=== PATIENT | female | born 1945 | race Caucasian/White ===

== ENCOUNTER 2020-04-08 10:21 | Inpatient (IN) | payer MEDICARE, MEDICAID, OTHER ==
[2020-04-08 11:05] LABS: #Lymphocytes 0.7 thou/uL (1.20-3.40); #Monocytes 1.1 thou/uL (0.11-0.59); #Neutrophils 17.2 thou/uL (1.40-6.50); %Lymphocytes 3.5 % (21.0-51.0); %Monocytes 5.7 % (0.0-10.0); %Neutrophils 90.8 % (42.0-75.0); Hemoglobin 14.4 g/dL (12.0-16.0); Mean Corpuscular HGB CONC 34.3 g/dL (32.0-36.0); Mean Corpuscular Hemoglobin 30.9 pg (27.0-31.0); Mean Corpuscular Volume 90.1 fL (78.0-98.0); Mean Platelet Volume 7.4 fL (7.4-10.4); Platelet Count 443 thou/uL (130-400); Red Blood Cell (RBC) Count 4.65 mill/uL (4.20-5.40)
[2020-04-08] MEDS ORDERED: Albuterol 200 PUFF (6.7GM INHALER) ONE (11:07)
[2020-04-08] MEDS ORDERED: Vancomycin 1 GM/200 ML BAG ONE (11:07)
[2020-04-08] MEDS ORDERED: methylPREDNISolone Sod Succ/PF 125 MG/2 ML VIAL ONE (11:07)
[2020-04-08] MEDS ORDERED: Acetaminophen 500 MG TAB ONE (11:07)
[2020-04-08] MEDS ORDERED: Piperacillin/Tazobactam 4.5 GM VIAL ONE (11:07)
--- NOTE | 2020-04-08 11:15 | RAD ---
XR Chest 1 View Portable HISTORY: Fever COMPARISON: 01/01/2020 FINDINGS: The heart size is normal. The lungs are well expanded with patchy airspace disease in the l ungs bilaterally, left greater than right. No, pneumothorax or pleural effusions are seen. IMPRESSION: Bilateral pneumonia.
[2020-04-08 11:24] LABS: ALT (SGPT) 15 U/L (8-55); AST (SGOT) 21 U/L (5-34); Albumin 3.6 g/dL (3.4-4.8); Alkaline Phosphatase 98 U/L (40-110); Anion Gap 17 mmol/L (10-20); BUN (Urea Nitrogen) 13 mg/dL (9.8-20.1); Bilirubin, Total 0.8 mg/dL (0.2-1.2); CK (CPK) 149 U/L (29-168); Calc. Creatinine Clearance 0 mL/min (70-130); Calcium 8.4 mg/dL (7.8-10.44); Carbon Dioxide 21 mmol/L (23-31); Chloride 94 mmol/L (98-107); Estimated GFR-MDRD 64; Globulin 2.8 g/dL (2.4-3.5); Glucose 308 mg/dL (83-110); Potassium 4.1 mmol/L (3.5-5.1); Protein, Total 6.4 g/dL (6.0-8.3); Sodium 128 mmol/L (136-145)
[2020-04-08 12:16] LABS: Actual Bicarbonate (HCO3v) 23 mEq/L (22-28); Analyzer IN Cardio ER; Base Excess -0.3 mEq/L (-2.0 to +3.0); Calcium, Ionized (venous) 1.07 mmol/L (1.16-1.32); Chloride (VBG) 92 mmol/L (98-106); Hemoglobin (Hb) 14.4 g/dL (11.7-16.1); pH (venous) 7.46 (7.32-7.43)
[2020-04-08 12:40] LABS: Lactic Acid 1.4 mmol/L (0.5-2.2)
--- NOTE | 2020-04-08 13:01 | PDOC.HHP ---
Hospitalist HPI - History of Present Illness Shortness of breath History of Present Illness: 74-year-old female patient with a history of diabetes mellitus, asthma hypertension who presents with shortness of breath for days duration. Patient notes that having shortness of breath a day ago which he thought asthma she did have breathing treatments however she had no significant resolution. She activated EMS today reported to the ED for further evaluation. At the time of my evaluation she was feeling much better. She was saturating 96% on room air. She admitted to cough however nonproductive. No fevers. She denied any headache abdominal pain chest pain dysuria. At initial evaluation ABG showed pH of 7.46, P CO2 32.6 and oxygen tension of 47.0. She had hyponatremia of 128, glucose 308 and a leukocytosis of 19.0. Chest x-ray showed bilateral pneumonia. COVID result is pending Vitals were 152/80 blood pressure, pulse 104, respiratory 22 and temperature 102.9. She was given vancomycin, Zosyn and 1 L of saline. She also received 125 mg Solu-Medrol. Hospitalist ROS - Review of Systems Constitutional: denies: fever, chills, sweats, weakness ENT: denies: ear pain, ear discharge, nose pain Respiratory: reports: cough, dry, shortness of breath, SOB with excertion. denies: hemoptysis Cardiovascular: denies: chest pain, palpitations, orthopnea, paroxysmal noc. dyspnea Genitourinary: denies: dysuria, frequency, incontinence Neurological: denies: weakness, numbness, incoordination - Medication Medications: As per admission records. Hospitalist History - Past Medical History Cardiac: reports: HTN Pulmonary: reports: asthma - Past Surgical History Other Surgical History: Appendectomy, tubal ligation, hernia removal Hospitalist Results - Labs Result Diagrams: 04/08/20 10:45 04/08/20 10:45 Lab results: WBC 19.0 thou/uL (4.8-10.8) H 04/08/20 10:45 Hgb 14.4 g/dL (12.0-16.0) 04/08/20 10:45 Hct 41.9 % (36.0-47.0) 04/08/20 10:45 MCV 90.1 fL (78.0-98.0) 04/08/20 10:45 Plt Count 443 thou/uL (130-400) H 04/08/20 10:45 Neutrophils % 90.8 % (42.0-75.0) H 04/08/20 10:45 VBG pH 7.46 (7.32-7.43) H 04/08/20 12:10 VBG pCO2 32.6 mmHg (42.0-51.0) L 04/08/20 12:10 VBG pO2 47.0 mmHg (35.0-45.0) H 04/08/20 12:10 Sodium 128 mmol/L (136-145) L 04/08/20 10:45 Potassium 4.1 mmol/L (3.5-5.1) 04/08/20 10:45 Chloride 94 mmol/L (98-107) L 04/08/20 10:45 Carbon Dioxide 21 mmol/L (23-31) L 04/08/20 10:45 BUN 13 mg/dL (9.8-20.1) 04/08/20 10:45 Creatinine 0.86 mg/dL (0.6-1.1) 04/08/20 10:45 Glucose 308 mg/dL (83-110) H 04/08/20 10:45 Lactic Acid 1.4 mmol/L (0.5-2.2) 04/08/20 12:15 Calcium 8.4 mg/dL (7.8-10.44) 04/08/20 10:45 Total Bilirubin 0.8 mg/dL (0.2-1.2) 04/08/20 10:45 AST 21 U/L (5-34) 04/08/20 10:45 ALT 15 U/L (8-55) 04/08/20 10:45 Alkaline Phosphatase 98 U/L (40-110) 04/08/20 10:45 Creatine Kinase 149 U/L (29-168) 04/08/20 10:45 Troponin I 0.023 ng/mL (< 0.028) 04/08/20 10:45 Serum Total Protein 6.4 g/dL (6.0-8.3) 04/08/20 10:45 Albumin 3.6 g/dL (3.4-4.8) 04/08/20 10:45 Hospitalist H&P A/P - Plan Plan: This is a 74-year-old female patient with a history of hypertension, asthma presented to ED on account of shortness of breath. Initial evaluation concerning for bilateral pneumonia which is concerning for COVID. Bilateral pneumonia Likely COVIDtest pending. Received steroids Also received vancomycin and Zosyn We will add azithromycin to cover for atypicals To start COVID therapy once confirmed. Sepsis Likely secondary to pneumonialikely COVID Received IV fluids and antibiotics Pending call with testing. Follow-up on cultures Close monitoring. Hypertension Blood pressure fair We will monitorstart home medications if verified. History of asthma Duo nebs Steroids Treat COVID if positive. Hyponatremia WBC 128 We will monitor DVT prophylaxisLovenox
[2020-04-08 13:29] LABS: Bacteria/HPF None Seen HPF (None Seen); Bilirubin Negative (Negative); Blood, Urine Negative (Negative); Clarity Turbid (Clear); Glucose, Urine (Dipstick) Greater than 1000 mg/dL (Negative); Ketone, Urine 20 mg/dL (Negative); Leukocyte Negative Leu/uL (Negative); Nitrite Negative (Negative); Protein, Urine (Dipstick) 50 mg/dL (Neg-Trace); RBC/HPF None Seen HPF (0-3); Specific Gravity, Urine 1.022 (1.002-1.036); Squamous Epithelial None Seen HPF (0-3); WBC/HPF 0-3 HPF (0-3)
[2020-04-08 13:46] LABS: SARS-CoV-2 NAA Rapid Test DETECTED (NotDetected)
[2020-04-08] MEDS ORDERED: cefTRIAXone\\ROCEPHIN 1 GM in Sodium Chloride 0.9% 100 ML IVPB SCH ×2 (14:00→17:00)
[2020-04-08 14:45] LABS: Troponin I 0.023 ng/mL (< 0.028)
[2020-04-08] MEDS ORDERED: Azithromycin 500 MG in Sodium Chloride 0.9% 250 ML 250 ML IVPB SCH ×2 (15:00→18:00)
[2020-04-08] MEDS ORDERED: Albuterol 200 PUFF (6.7GM INHALER) INH PRN (15:54)
[2020-04-08] MEDS: Albuterol 200 PUFF (6.7GM INHALER) INH SCH ×2 (18:05→21:30)
[2020-04-08] MEDS ORDERED: Dextrose 5% in Water 1,000 ML IV PRN (18:41)
[2020-04-08] MEDS ORDERED: Dextrose 50% Abboject 50 ML SYRINGE SLOW IVP PRN (18:41)
[2020-04-08] MEDS ORDERED: HumaLOG 300 UNITS/3 ML VIAL SC PRN (21:04)
[2020-04-08] MEDS ORDERED: Dexamethasone 6 MG in Sodium Chloride 0.9% 50 ML IVPB SCH (21:30)
[2020-04-09] MEDS: Albuterol 200 PUFF (6.7GM INHALER) INH SCH ×6 (02:41→22:16)
[2020-04-09 05:40] LABS: Hemoglobin 13.2 g/dL (12.0-16.0); Mean Corpuscular HGB CONC 33.4 g/dL (32.0-36.0); Mean Corpuscular Hemoglobin 30.9 pg (27.0-31.0); Mean Corpuscular Volume 92.6 fL (78.0-98.0); Mean Platelet Volume 7.4 fL (7.4-10.4); Platelet Count 472 thou/uL (130-400); RBC Distribution Width 11.2 % (11.5-14.5); Red Blood Cell (RBC) Count 4.25 mill/uL (4.20-5.40); White Blood Cell (WBC) Count 22.7 thou/uL (4.8-10.8)
[2020-04-09 05:49] LABS: Anion Gap 17 mmol/L (10-20); BUN (Urea Nitrogen) 15 mg/dL (9.8-20.1); Calc. Creatinine Clearance 69 mL/min (70-130); Calcium 8.9 mg/dL (7.8-10.44); Carbon Dioxide 23 mmol/L (23-31); Chloride 97 mmol/L (98-107); Estimated GFR-MDRD 74; Glucose 272 mg/dL (83-110); Potassium 3.6 mmol/L (3.5-5.1); Sodium 133 mmol/L (136-145)
[2020-04-09 05:58] LABS: Band 14 % (5-11); Lymphocytes 7 % (21-51); MDiff Complete? YES; Monocytes 5 % (0-10); Neutrophil 74 % (42-75); Platelet Morphology Comment Appears Increased
[2020-04-09] MEDS: HumaLOG 300 UNITS/3 ML VIAL SC PRN ×3 (06:04→18:13)
[2020-04-09] MEDS ORDERED: Enoxaparin Sodium 40 MG/0.4 ML SYRINGE SC SCH (09:00)
[2020-04-09] MEDS: Dexamethasone 6 MG in Sodium Chloride 0.9% 50 ML IVPB SCH (09:29)
--- NOTE | 2020-04-09 10:38 | PDOC.HOSPP ---
- Subjective Encounter Date: 04/09/20 Encounter Time: 10:37 Subjective: Ms. Holt was seen today in follow-up of respiratory failure due to COVID infection. She says she does not feel much better. She does not have any new complaints. She continues to have cough and some shortness of breath. - Objective Vital Signs & Weight: Vital Signs (12 hours) Temp Pulse Resp BP Pulse Ox 04/09/20 08:00 99.3 F 103 H 20 129/60 98 04/09/20 03:30 99.0 F 102 H 22 H 140/63 94 L 04/09/20 00:20 97.8 F 90 22 H 125/59 L 96 Weight Weight 150 lb I&O: 04/08/20 04/09/20 04/10/20 06:59 06:59 06:59 Intake Total 640 Output Total 350 Balance 290 Result Diagrams: 04/09/20 04:47 04/09/20 04:47 Additional Labs: Accuchecks 04/08/20 04/08/20 19:56 17:29 POC Glucose 442 H 285 H Hospitalist ROS - Medication Medications: Active Medications Generic Name Dose Route Start Last Admin Trade Name Freq PRN Reason Stop Dose Admin Albuterol Sulfate 2 puff 04/08/20 18:30 04/09/20 06:04 Albuterol 200 Puff (6.7gm Inhaler) INH 2 puff [id number] FRANCIS Administration Enoxaparin Sodium 40 mg 04/09/20 09:00 04/09/20 08:27 Enoxaparin Sodium 40 Mg/0.4 Ml Syringe SC 40 mg 0900 FRANCIS Administration Ceftriaxone Sodium 1 gm/ 100 mls @ 200 mls/hr 04/08/20 17:00 04/08/20 18:05 Sodium Chloride IVPB 100 mls Q24HR FRANCIS Administration Azithromycin 500 mg/ Sodium 250 mls @ 250 mls/hr 04/08/20 18:00 04/08/20 18:04 Chloride IVPB 250 mls Q24HR FRANCIS Administration Dexamethasone 6 mg/ Sodium 50.6 mls @ 101.2 mls/hr 04/09/20 09:00 04/09/20 09:29 Chloride IVPB 50.6 mls DAILY FRANCIS Administration Insulin Human Lispro 0 units 04/08/20 18:41 04/09/20 06:04 Humalog 300 Units/3 Ml Vial SC 4 unit .MILD SLIDING SCALE PRN Administration Mild Correctional Scale Insulin Human Lispro 0 units 04/08/20 21:04 04/08/20 21:29 Humalog 300 Units/3 Ml Vial SC 5 unit .BEDTIME SLIDING SC PRN Administration Bedtime Correctional Scale - Exam Eye: PERRL, anicteric sclera Heart: RRR, no murmur, no gallops, no rubs, normal peripheral pulses Respiratory: no ronchi, rales (+ rales at both bases) Gastrointestinal: soft, non-tender, non-distended, normal bowel sounds, no palpable masses, no hepatomegaly Extremities: no cyanosis, no edema Hosp A/P (1) Acute respiratory failure with hypoxemia Code(s): J96.01 - ACUTE RESPIRATORY FAILURE WITH HYPOXIA Status: Acute (2) Diabetes mellitus type 2 in nonobese Code(s): E11.9 - TYPE 2 DIABETES MELLITUS WITHOUT COMPLICATIONS Status: Chronic (3) Hypertension Code(s): I10 - ESSENTIAL (PRIMARY) HYPERTENSION Status: Chronic (4) Asthma Code(s): J45.909 - UNSPECIFIED ASTHMA, UNCOMPLICATED Status: Chronic - Plan * Acute respiratory failure due to COVID pneumonia- continue supportive care * Will continue IV Decadron, and empiric antibiotics * Will continue to monitor inflammatory markers * ID has been consulted * HTN- blood pressure is stable- will re-start her home medications * DM- blood glucose is stable- and will re-start her home medications
[2020-04-09] MEDS ORDERED: Docusate 100 MG CAP PO PRN (10:41)
[2020-04-09] MEDS ORDERED: Naproxen 500 MG TAB PO PRN (12:18)
[2020-04-09] MEDS ORDERED: Zolpidem Tartrate 5 MG TAB PO PRN (16:39)
[2020-04-09] MEDS: metFORMIN 500 MG TAB PO SCH (18:13)
[2020-04-09] MEDS: Enoxaparin Sodium 40 MG/0.4 ML SYRINGE SC SCH (19:52)
[2020-04-09] MEDS: Metoprolol Tartrate 50 MG TAB PO SCH (19:53)
[2020-04-09] MEDS: Insulin Glargine 35 UNITS in Pre-Filled Syringe 1 EACH SC SCH (19:53)
[2020-04-09] MEDS ORDERED: REMDESIVIR (EUA) 200 MG in Sodium Chloride 0.9% 250 ML 210 ML IV SCH (21:00)
[2020-04-09] MEDS ORDERED: Non-Formulary Item 1 EACH (Insulin Detemir [Levemir] 100 UNIT/ML Vial) SQ SCH (21:00)
--- NOTE | 2020-04-09 22:00 | CON ---
DATE OF CONSULTATION: 04/09/2020 REASON FOR CONSULTATION: COVID infection. HISTORY OF PRESENT ILLNESS: A 74-year-old with history of type 2 diabetes, hypertension, and two days duration of shortness of breath and cough and fever. She was saturating 96% on room air. Had some cough and had a blood gas with a pH of 7.46, pCO2 of 32, and pO2 of 47. Sodium 128 and leukocytosis of 19. Chest x-ray with quite pronounced bilateral diffuse areas of pneumonic infiltrate. The COVID was positive. Currently, she is in bed. She is having issues sleeping at night and feels tired, coughing also constantly, which is bothering her. No headaches. No sputum production. No back pain. No abdominal pain. No diarrhea. No genitourinary symptoms. No joint symptoms. PAST MEDICAL HISTORY: Hypertension, type 2 diabetes, and asthma. PAST SURGICAL HISTORY: Appendectomy, tubal ligation, and hernia removal. CURRENT MEDICATIONS: 1. Inhalers. 2. Azithromycin. 3. Ceftriaxone. 4. Decadron. 5. Enoxaparin. FAMILY HISTORY: Noncontributory. PHYSICAL EXAMINATION: VITAL SIGNS: T-max 98.3, blood pressure 130/60, heart rate 120, and O2 saturation 95 with nasal cannula O2 at 2 L. she is breathing 22 times a minute. SKIN: Peripheral IV access. She is voiding in the diaper. No lymphadenopathy. HEENT: Ocular movements conjugate. Oral cavity normal. NECK: Supple. LUNGS: Symmetric air entry. Inspiratory crackles at the bases. HEART: S1 and S2. Regular rate. No S3 or S4. ABDOMEN: Soft, not distended or tender. No ascites. No bladder distention. EXTREMITIES: No joint inflammatory activity. Moves all extremities equally. NEUROLOGIC: Cognitive functions seems to be preserved. DIAGNOSTIC DATA: Chest x-ray, diffuse pulmonary infiltrates. ASSESSMENT AND PLAN: Type 2 diabetes, hypertension, and diffuse COVID pneumonia, moderate to severe. We will add remdesivir. Continue Decadron. Discontinue azithromycin and Rocephin. Continue enoxaparin, upgrade to b.i.d. dosing. Monitor daily inflammatory markers, liver panel, and basic metabolic panel. Job ID: [id number]
[2020-04-10] MEDS: Albuterol 200 PUFF (6.7GM INHALER) INH SCH ×6 (02:39→21:06)
[2020-04-10 06:36] LABS: Anion Gap 12 mmol/L (10-20); BUN (Urea Nitrogen) 16 mg/dL (9.8-20.1); CRP (Inflammatory) 15.41 mg/dL (= or < 0.5); Calc. Creatinine Clearance 76 mL/min (70-130); Calcium 8.7 mg/dL (7.8-10.44); Carbon Dioxide 28 mmol/L (23-31); Chloride 98 mmol/L (98-107); Estimated GFR-MDRD 82; Glucose 125 mg/dL (83-110); Potassium 3.6 mmol/L (3.5-5.1); Sodium 134 mmol/L (136-145)
[2020-04-10 06:40] LABS: ALT (SGPT) 17 U/L (8-55); AST (SGOT) 23 U/L (5-34); Albumin 3.1 g/dL (3.4-4.8); Alkaline Phosphatase 79 U/L (40-110); Bilirubin, Direct 0.3 mg/dL (0.1-0.3); Bilirubin, Total 0.4 mg/dL (0.2-1.2); Protein, Total 6.2 g/dL (6.0-8.3)
[2020-04-10] MEDS: metFORMIN 500 MG TAB PO SCH ×2 (09:13→16:53)
[2020-04-10] MEDS: Aspirin 325 mg Enteric Coated Tablet PO SCH (09:13)
[2020-04-10] MEDS: Folic Acid/Vit B Comp W-C PO SCH (09:13)
[2020-04-10] MEDS: Atorvastatin Calcium 10 MG TAB PO SCH (09:14)
[2020-04-10] MEDS: Amlodipine 5 MG TAB PO SCH (09:14)
[2020-04-10] MEDS: Ascorbic Acid 500 mg Chewable Tablet PO SCH (09:14)
[2020-04-10] MEDS: Metoprolol Tartrate 50 MG TAB PO SCH ×2 (09:14→21:05)
[2020-04-10] MEDS: Enoxaparin Sodium 40 MG/0.4 ML SYRINGE SC SCH ×2 (09:14→21:06)
[2020-04-10] MEDS: Dexamethasone 6 MG in Sodium Chloride 0.9% 50 ML IVPB SCH (09:16)
--- NOTE | 2020-04-10 10:17 | PDOC.HOSPP ---
- Subjective Encounter Date: 04/10/20 Encounter Time: 10:16 Subjective: Ms. Holt was seen today in follow-up of COVID infection with pneumonia. She syas she is fine until she has coughing spells. She says this usually happens at night, - Objective Vital Signs & Weight: Vital Signs (12 hours) Temp Pulse Resp BP Pulse Ox 04/10/20 09:25 97.4 F L 90 32 H 139/67 96 04/10/20 04:00 98.9 F 78 28 H 132/101 H 92 L 04/09/20 23:35 98.1 F 75 28 H 133/65 95 Weight Admit Weight 150 lb Weight 153 lb 12.8 oz I&O: 04/09/20 04/10/20 04/11/20 06:59 06:59 06:59 Intake Total 640 555 Output Total 350 1150 Balance 290 -595 Result Diagrams: 04/09/20 04:47 04/10/20 05:04 Additional Labs: Accuchecks 04/10/20 04/09/20 04/09/20 06:15 20:24 15:56 POC Glucose 112 H 315 H 374 H 04/09/20 10:38 POC Glucose 284 H Hospitalist ROS - Medication Medications: Active Medications Generic Name Dose Route Start Last Admin Trade Name Freq PRN Reason Stop Dose Admin Albuterol Sulfate 2 puff 04/08/20 18:30 04/10/20 06:16 Albuterol 200 Puff (6.7gm Inhaler) INH 2 puff [id number] FRANCIS Administration Amlodipine Besylate 5 mg 04/10/20 09:00 04/10/20 09:14 Amlodipine 5 Mg Tab PO 5 mg DAILY FRANCIS Administration Ascorbic Acid 1,000 mg 04/10/20 09:00 04/10/20 09:14 Ascorbic Acid 500 Mg Chewable Tablet PO 1,000 mg DAILY FRANCIS Administration Aspirin 325 mg 04/10/20 09:00 04/10/20 09:13 Aspirin 325 Mg Enteric Coated Tablet PO 325 mg DAILY FRANCIS Administration Atorvastatin Calcium 10 mg 04/10/20 09:00 04/10/20 09:14 Atorvastatin Calcium 10 Mg Tab PO 10 mg DAILY FRANCIS Administration Enoxaparin Sodium 40 mg 04/09/20 21:00 04/10/20 09:14 Enoxaparin Sodium 40 Mg/0.4 Ml Syringe SC 40 mg BID FRANCIS Administration Dexamethasone 6 mg/ Sodium 50.6 mls @ 101.2 mls/hr 04/09/20 09:00 04/10/20 09:16 Chloride IVPB 50.6 mls DAILY FRANCIS Administration Insulin Glargine 35 units/ 0.35 mls @ 0 mls/hr 04/09/20 21:00 04/09/20 19:53 Miscellaneous Medication SC 0.35 mls HS FRANCIS Administration Insulin Human Lispro 0 units 04/08/20 18:41 04/09/20 18:13 Humalog 300 Units/3 Ml Vial SC 6 unit .MILD SLIDING SCALE PRN Administration Mild Correctional Scale Insulin Human Lispro 0 units 04/08/20 21:04 04/08/20 21:29 Humalog 300 Units/3 Ml Vial SC 5 unit .BEDTIME SLIDING SC PRN Administration Bedtime Correctional Scale Metformin HCl 1,000 mg 04/09/20 17:00 04/10/20 09:13 Metformin 500 Mg Tab PO 1,000 mg BID-WM FRANCIS Administration Metoprolol Tartrate 50 mg 04/09/20 21:00 04/10/20 09:14 Metoprolol Tartrate 50 Mg Tab PO 50 mg BID FRANCIS Administration Vitamin B Complex/Vit C/Folic Acid 1 tab 04/10/20 09:00 04/10/20 09:13 Folic Acid/Vit B Comp W-C PO 1 tab DAILY FRANCIS Administration - Exam Eye: PERRL, anicteric sclera Heart: RRR, no murmur, no gallops, no rubs, normal peripheral pulses Respiratory: no ronchi, rales (+ bibasilar rales) Gastrointestinal: soft, non-tender, non-distended, normal bowel sounds, no palpable masses, no hepatomegaly Extremities: no cyanosis, no edema Hosp A/P (1) Acute respiratory failure with hypoxemia Code(s): J96.01 - ACUTE RESPIRATORY FAILURE WITH HYPOXIA Status: Acute (2) Diabetes mellitus type 2 in nonobese Code(s): E11.9 - TYPE 2 DIABETES MELLITUS WITHOUT COMPLICATIONS Status: Chronic (3) Hypertension Code(s): I10 - ESSENTIAL (PRIMARY) HYPERTENSION Status: Chronic (4) Asthma Code(s): J45.909 - UNSPECIFIED ASTHMA, UNCOMPLICATED Status: Chronic - Plan * Acute respiratory failure due to COVID pneumonia- continue supportive care * Will continue IV Decadron, and she has been started on Remdisivir * Will continue to monitor inflammatory markers * HTN- blood pressure is a bit labile- continue Amlodipine and prn medications * DM- blood glucose is stable * Asthma- stable
[2020-04-10] MEDS: HumaLOG 300 UNITS/3 ML VIAL SC PRN (17:04)
[2020-04-10] MEDS: REMDESIVIR (EUA) 100 MG in Sodium Chloride 0.9% 250 ML 230 ML IV SCH (21:04)
[2020-04-10] MEDS: Insulin Glargine 35 UNITS in Pre-Filled Syringe 1 EACH SC SCH (21:04)
[2020-04-11] MEDS: Albuterol 200 PUFF (6.7GM INHALER) INH SCH ×5 (03:00→22:03)
[2020-04-11 05:18] LABS: #Basophils 0.1 thou/uL (0.0-0.2); #Eosinphils 0.1 thou/uL (0.0-0.7); #Lymphocytes 3.5 thou/uL (1.20-3.40); #Monocytes 1.7 thou/uL (0.11-0.59); #Neutrophils 9.4 thou/uL (1.40-6.50); %Basophils 0.4 % (0.0-1.0); %Eosinophils 0.7 % (0.0-10.0); %Lymphocytes 23.6 % (21.0-51.0); %Monocytes 11.7 % (0.0-10.0); %Neutrophils 63.5 % (42.0-75.0); Hemoglobin 13.4 g/dL (12.0-16.0); Mean Corpuscular HGB CONC 34.7 g/dL (32.0-36.0); Mean Corpuscular Hemoglobin 31.2 pg (27.0-31.0); Mean Platelet Volume 7.2 fL (7.4-10.4); Platelet Count 590 thou/uL (130-400); RBC Distribution Width 11.3 % (11.5-14.5); Red Blood Cell (RBC) Count 4.28 mill/uL (4.20-5.40); White Blood Cell (WBC) Count 14.8 thou/uL (4.8-10.8)
[2020-04-11 05:42] LABS: ALT (SGPT) 21 U/L (8-55); AST (SGOT) 24 U/L (5-34); Albumin 2.9 g/dL (3.4-4.8); Alkaline Phosphatase 72 U/L (40-110); Bilirubin, Direct 0.3 mg/dL (0.1-0.3); Bilirubin, Total 0.4 mg/dL (0.2-1.2)
[2020-04-11 05:54] LABS: Anion Gap 13 mmol/L (10-20); BUN (Urea Nitrogen) 17 mg/dL (9.8-20.1); CRP (Inflammatory) 11.38 mg/dL (= or < 0.5); Calc. Creatinine Clearance 81 mL/min (70-130); Calcium 8.2 mg/dL (7.8-10.44); Carbon Dioxide 27 mmol/L (23-31); Chloride 99 mmol/L (98-107); Estimated GFR-MDRD 87; Potassium 3.5 mmol/L (3.5-5.1); Sodium 135 mmol/L (136-145)
[2020-04-11 06:02] LABS: Glucose 55 mg/dL (83-110)
[2020-04-11] MEDS: Dexamethasone 6 MG in Sodium Chloride 0.9% 50 ML IVPB SCH (08:25)
[2020-04-11] MEDS: Enoxaparin Sodium 40 MG/0.4 ML SYRINGE SC SCH ×2 (08:26→21:11)
[2020-04-11] MEDS: metFORMIN 500 MG TAB PO SCH ×2 (08:26→17:54)
[2020-04-11] MEDS: Ascorbic Acid 500 mg Chewable Tablet PO SCH (08:27)
[2020-04-11] MEDS: Folic Acid/Vit B Comp W-C PO SCH (08:27)
[2020-04-11] MEDS: Amlodipine 5 MG TAB PO SCH (08:27)
[2020-04-11] MEDS: Metoprolol Tartrate 50 MG TAB PO SCH ×2 (08:27→21:12)
[2020-04-11] MEDS: Aspirin 325 mg Enteric Coated Tablet PO SCH (08:27)
[2020-04-11] MEDS: Atorvastatin Calcium 10 MG TAB PO SCH (08:27)
--- NOTE | 2020-04-11 10:54 | PDOC.HOSPP ---
- Subjective Encounter Date: 04/11/20 Encounter Time: 10:53 Subjective: Ms. Holt was seen today in follow-up of COVID pneumonia. She notes continued cough and dyspnea, but says she is a little better. At times she appears a little confused, but she is able to answer the orientation questions correctly. - Objective Vital Signs & Weight: Vital Signs (12 hours) Temp Pulse Resp BP Pulse Ox 04/11/20 08:00 97.5 F L 75 20 120/53 L 98 04/11/20 03:00 98.5 F 70 28 H 151/67 H 96 04/10/20 23:57 22 H 96 Weight Admit Weight 150 lb Weight 153 lb 12.8 oz I&O: 04/10/20 04/11/20 04/12/20 06:59 06:59 06:59 Intake Total 555 1460 Output Total 1150 1350 Balance -595 1460 -1350 Result Diagrams: 04/11/20 04:53 04/11/20 04:53 Additional Labs: Accuchecks 04/11/20 04/10/20 04/10/20 06:24 16:59 11:04 POC Glucose 84 314 H 115 H Hospitalist ROS - Medication Medications: Active Medications Generic Name Dose Route Start Last Admin Trade Name Freq PRN Reason Stop Dose Admin Albuterol Sulfate 2 puff 04/08/20 18:30 04/11/20 06:30 Albuterol 200 Puff (6.7gm Inhaler) INH 2 puff [id number] FRANCIS Administration Amlodipine Besylate 5 mg 04/10/20 09:00 04/11/20 08:27 Amlodipine 5 Mg Tab PO 5 mg DAILY FRANCIS Administration Ascorbic Acid 1,000 mg 04/10/20 09:00 04/11/20 08:27 Ascorbic Acid 500 Mg Chewable Tablet PO 1,000 mg DAILY FRANCIS Administration Aspirin 325 mg 04/10/20 09:00 04/11/20 08:27 Aspirin 325 Mg Enteric Coated Tablet PO 325 mg DAILY FRANCIS Administration Atorvastatin Calcium 10 mg 04/10/20 09:00 04/11/20 08:27 Atorvastatin Calcium 10 Mg Tab PO 10 mg DAILY FRANCIS Administration Enoxaparin Sodium 40 mg 04/09/20 21:00 04/11/20 08:26 Enoxaparin Sodium 40 Mg/0.4 Ml Syringe SC 40 mg BID FRANCIS Administration Dexamethasone 6 mg/ Sodium 50.6 mls @ 101.2 mls/hr 04/09/20 09:00 04/11/20 08:25 Chloride IVPB 50.6 mls DAILY FRANCIS Administration Insulin Glargine 35 units/ 0.35 mls @ 0 mls/hr 04/09/20 21:00 04/10/20 21:04 Miscellaneous Medication SC 0.35 mls HS FRANCIS Administration Remdesivir 100 mg/ Sodium 250 mls @ 250 mls/hr 04/10/20 20:00 04/10/20 21:04 Chloride IV 04/13/20 20:59 250 mls 2000 FRANCIS Administration Insulin Human Lispro 0 units 04/08/20 18:41 04/10/20 17:04 Humalog 300 Units/3 Ml Vial SC 5 unit .MILD SLIDING SCALE PRN Administration Mild Correctional Scale Insulin Human Lispro 0 units 04/08/20 21:04 04/08/20 21:29 Humalog 300 Units/3 Ml Vial SC 5 unit .BEDTIME SLIDING SC PRN Administration Bedtime Correctional Scale Metformin HCl 1,000 mg 04/09/20 17:00 04/11/20 08:26 Metformin 500 Mg Tab PO 1,000 mg BID-WM FRANCIS Administration Metoprolol Tartrate 50 mg 04/09/20 21:00 04/11/20 08:27 Metoprolol Tartrate 50 Mg Tab PO 50 mg BID FRANCIS Administration Vitamin B Complex/Vit C/Folic Acid 1 tab 04/10/20 09:00 04/11/20 08:27 Folic Acid/Vit B Comp W-C PO 1 tab DAILY FRANCIS Administration - Exam Eye: PERRL, anicteric sclera Heart: RRR, no murmur, no gallops, no rubs, normal peripheral pulses Respiratory: rales (at the bases, faint, and occasional wheeze) Gastrointestinal: soft, non-tender, non-distended, normal bowel sounds, no palpable masses, no hepatomegaly Extremities: no cyanosis, no edema Hosp A/P (1) Acute respiratory failure with hypoxemia Code(s): J96.01 - ACUTE RESPIRATORY FAILURE WITH HYPOXIA Status: Acute (2) Diabetes mellitus type 2 in nonobese Code(s): E11.9 - TYPE 2 DIABETES MELLITUS WITHOUT COMPLICATIONS Status: Chronic (3) Hypertension Code(s): I10 - ESSENTIAL (PRIMARY) HYPERTENSION Status: Chronic (4) Asthma Code(s): J45.909 - UNSPECIFIED ASTHMA, UNCOMPLICATED Status: Chronic - Plan * Acute respiratory failure due to COVID pneumonia- continue supportive care * Will continue IV Decadron, and Remdisivir * Will continue to monitor inflammatory markers * HTN- blood pressure is a bit labile- continue Amlodipine and prn medications * DM- blood glucose is a bit labile- will monitor * Asthma- stable
[2020-04-11] MEDS: Insulin Glargine 35 UNITS in Pre-Filled Syringe 1 EACH SC SCH (21:11)
[2020-04-11] MEDS: REMDESIVIR (EUA) 100 MG in Sodium Chloride 0.9% 250 ML 230 ML IV SCH (21:11)
[2020-04-12] MEDS: Albuterol 200 PUFF (6.7GM INHALER) INH SCH ×6 (01:30→22:30)
[2020-04-12 04:46] LABS: #Basophils 0.1 thou/uL (0.0-0.2); #Eosinphils 0.1 thou/uL (0.0-0.7); #Lymphocytes 3.1 thou/uL (1.20-3.40); #Monocytes 1.5 thou/uL (0.11-0.59); #Neutrophils 9.4 thou/uL (1.40-6.50); %Basophils 0.6 % (0.0-1.0); %Eosinophils 0.7 % (0.0-10.0); %Lymphocytes 21.9 % (21.0-51.0); %Monocytes 10.7 % (0.0-10.0); %Neutrophils 66.2 % (42.0-75.0); Hemoglobin 12.7 g/dL (12.0-16.0); Mean Corpuscular HGB CONC 33.8 g/dL (32.0-36.0); Mean Corpuscular Hemoglobin 30.8 pg (27.0-31.0); Mean Corpuscular Volume 91.1 fL (78.0-98.0); Mean Platelet Volume 7.2 fL (7.4-10.4); Platelet Count 570 thou/uL (130-400); RBC Distribution Width 11.3 % (11.5-14.5); Red Blood Cell (RBC) Count 4.13 mill/uL (4.20-5.40); White Blood Cell (WBC) Count 14.3 thou/uL (4.8-10.8)
[2020-04-12 05:17] LABS: Anion Gap 12 mmol/L (10-20); BUN (Urea Nitrogen) 13 mg/dL (9.8-20.1); CRP (Inflammatory) 7.87 mg/dL (= or < 0.5); Calc. Creatinine Clearance 84 mL/min (70-130); Calcium 8.1 mg/dL (7.8-10.44); Carbon Dioxide 25 mmol/L (23-31); Chloride 100 mmol/L (98-107); Estimated GFR-MDRD 90; Glucose 66 mg/dL (83-110); Potassium 3.1 mmol/L (3.5-5.1); Sodium 134 mmol/L (136-145)
[2020-04-12 05:21] LABS: ALT (SGPT) 19 U/L (8-55); AST (SGOT) 21 U/L (5-34); Albumin 2.7 g/dL (3.4-4.8); Alkaline Phosphatase 64 U/L (40-110); Bilirubin, Direct 0.3 mg/dL (0.1-0.3); Bilirubin, Total 0.4 mg/dL (0.2-1.2); Protein, Total 5.5 g/dL (6.0-8.3)
[2020-04-12] MEDS ORDERED: Potassium Chloride 20 MEQ TAB PO SCH (08:00)
[2020-04-12] MEDS: Ascorbic Acid 500 mg Chewable Tablet PO SCH (08:36)
[2020-04-12] MEDS: Folic Acid/Vit B Comp W-C PO SCH (08:36)
[2020-04-12] MEDS: Enoxaparin Sodium 40 MG/0.4 ML SYRINGE SC SCH ×2 (08:36→20:11)
[2020-04-12] MEDS: Amlodipine 5 MG TAB PO SCH (08:37)
[2020-04-12] MEDS: Metoprolol Tartrate 50 MG TAB PO SCH ×2 (08:37→20:12)
[2020-04-12] MEDS: Dexamethasone 6 MG in Sodium Chloride 0.9% 50 ML IVPB SCH (08:38)
[2020-04-12] MEDS: Aspirin 325 mg Enteric Coated Tablet PO SCH (08:38)
[2020-04-12] MEDS: Atorvastatin Calcium 10 MG TAB PO SCH (08:38)
[2020-04-12] MEDS: metFORMIN 500 MG TAB PO SCH ×2 (08:38→17:38)
--- NOTE | 2020-04-12 11:13 | PDOC.HOSPP ---
- Subjective Encounter Date: 04/12/20 Encounter Time: 11:12 Subjective: Ms. Holt was seen today in follow-up of COVID pneumonia. She is feeling better. She is sitting up in bed without any supplemental oxygen. She says her appetite is improving. - Objective Vital Signs & Weight: Vital Signs (12 hours) Temp Pulse Resp BP Pulse Ox 04/12/20 10:55 97.0 F L 81 20 119/58 L 95 04/12/20 09:56 93 L 04/12/20 08:52 97.8 F 74 24 H 149/63 H 97 04/12/20 03:19 98.4 F 67 28 H 152/69 H 98 04/12/20 01:25 98.3 F 69 26 H 157/72 H 97 Weight Admit Weight 150 lb Weight 153 lb 12.8 oz I&O: 04/11/20 04/12/20 04/13/20 06:59 06:59 06:59 Intake Total 1460 965 300 Output Total 2300 Balance 1460 -1335 300 Result Diagrams: 04/12/20 04:18 04/12/20 04:18 Additional Labs: Accuchecks 04/12/20 04/11/20 04/11/20 10:36 21:25 16:44 POC Glucose 120 H 188 H 129 H 04/11/20 04/10/20 11:16 19:53 POC Glucose 128 H 190 H Hospitalist ROS - Medication Medications: Active Medications Generic Name Dose Route Start Last Admin Trade Name Freq PRN Reason Stop Dose Admin Albuterol Sulfate 2 puff 04/08/20 18:30 04/12/20 10:53 Albuterol 200 Puff (6.7gm Inhaler) INH 2 puff [id number] FRANCIS Administration Amlodipine Besylate 5 mg 04/10/20 09:00 04/12/20 08:37 Amlodipine 5 Mg Tab PO 5 mg DAILY FRANCIS Administration Ascorbic Acid 1,000 mg 04/10/20 09:00 04/12/20 08:36 Ascorbic Acid 500 Mg Chewable Tablet PO 1,000 mg DAILY FRANCIS Administration Aspirin 325 mg 04/10/20 09:00 04/12/20 08:38 Aspirin 325 Mg Enteric Coated Tablet PO 325 mg DAILY FRANCIS Administration Atorvastatin Calcium 10 mg 04/10/20 09:00 04/12/20 08:38 Atorvastatin Calcium 10 Mg Tab PO 10 mg DAILY FRANCIS Administration Enoxaparin Sodium 40 mg 04/09/20 21:00 04/12/20 08:36 Enoxaparin Sodium 40 Mg/0.4 Ml Syringe SC 40 mg BID FRANCIS Administration Dexamethasone 6 mg/ Sodium 50.6 mls @ 101.2 mls/hr 04/09/20 09:00 04/12/20 08:38 Chloride IVPB 50.6 mls DAILY FRANCIS Administration Insulin Glargine 35 units/ 0.35 mls @ 0 mls/hr 04/09/20 21:00 04/11/20 21:11 Miscellaneous Medication SC 0.35 mls HS FRANCIS Administration Remdesivir 100 mg/ Sodium 250 mls @ 250 mls/hr 04/10/20 20:00 04/11/20 21:11 Chloride IV 04/13/20 20:59 250 mls 2000 FRANCIS Administration Insulin Human Lispro 0 units 04/08/20 18:41 04/10/20 17:04 Humalog 300 Units/3 Ml Vial SC 5 unit .MILD SLIDING SCALE PRN Administration Mild Correctional Scale Insulin Human Lispro 0 units 04/08/20 21:04 04/08/20 21:29 Humalog 300 Units/3 Ml Vial SC 5 unit .BEDTIME SLIDING SC PRN Administration Bedtime Correctional Scale Metformin HCl 1,000 mg 04/09/20 17:00 04/12/20 08:38 Metformin 500 Mg Tab PO 1,000 mg BID-WM FRANCIS Administration Metoprolol Tartrate 50 mg 04/09/20 21:00 04/12/20 08:37 Metoprolol Tartrate 50 Mg Tab PO 50 mg BID FRANCIS Administration Vitamin B Complex/Vit C/Folic Acid 1 tab 04/10/20 09:00 04/12/20 08:36 Folic Acid/Vit B Comp W-C PO 1 tab DAILY FRANCIS Administration - Exam Eye: PERRL, anicteric sclera Heart: RRR, no murmur, no gallops, no rubs, normal peripheral pulses Respiratory: rales (+ faint rales at the bases) Gastrointestinal: soft, non-tender, normal bowel sounds, no palpable masses, no hepatomegaly, distended (mildly distended) Extremities: no cyanosis, no clubbing, no edema Hosp A/P (1) Acute respiratory failure with hypoxemia Code(s): J96.01 - ACUTE RESPIRATORY FAILURE WITH HYPOXIA Status: Acute (2) Diabetes mellitus type 2 in nonobese Code(s): E11.9 - TYPE 2 DIABETES MELLITUS WITHOUT COMPLICATIONS Status: Chronic (3) Hypertension Code(s): I10 - ESSENTIAL (PRIMARY) HYPERTENSION Status: Chronic (4) Asthma Code(s): J45.909 - UNSPECIFIED ASTHMA, UNCOMPLICATED Status: Chronic - Plan * Acute respiratory failure due to COVID pneumonia- continue supportive care * Will continue IV Decadron * She should receive her final dose of Remdesivir tomorrow. If she continues to do well then she can be discharged after Remdesivir is complete * HTN- blood pressure is a bit labile- continue Amlodipine and prn medications * DM- blood glucose is a bit labile- will monitor * Asthma- stable
[2020-04-12 11:29] VITALS: BMI 26.4
[2020-04-12] MEDS: REMDESIVIR (EUA) 100 MG in Sodium Chloride 0.9% 250 ML 230 ML IV SCH (20:11)
[2020-04-12] MEDS: Insulin Glargine 35 UNITS in Pre-Filled Syringe 1 EACH SC SCH (20:11)
[2020-04-13] MEDS: Albuterol 200 PUFF (6.7GM INHALER) INH SCH ×6 (03:30→21:40)
[2020-04-13 05:22] LABS: Anion Gap 10 mmol/L (10-20); BUN (Urea Nitrogen) 14 mg/dL (9.8-20.1); Calc. Creatinine Clearance 81 mL/min (70-130); Calcium 8.5 mg/dL (7.8-10.44); Carbon Dioxide 28 mmol/L (23-31); Chloride 99 mmol/L (98-107); Estimated GFR-MDRD 87; Glucose 88 mg/dL (83-110); Potassium 3.6 mmol/L (3.5-5.1); Sodium 133 mmol/L (136-145)
[2020-04-13 05:23] LABS: ALT (SGPT) 22 U/L (8-55); AST (SGOT) 23 U/L (5-34); Albumin 2.8 g/dL (3.4-4.8); Alkaline Phosphatase 73 U/L (40-110); Bilirubin, Direct 0.3 mg/dL (0.1-0.3); Bilirubin, Total 0.4 mg/dL (0.2-1.2); Protein, Total 5.8 g/dL (6.0-8.3)
[2020-04-13 05:47] LABS: Elliptocytes SLIGHT = 2-5 cells (100X) (0-1/hpf); Eosinophils 2 % (0-10); Hemoglobin 13.6 g/dL (12.0-16.0); Lymphocytes 13 % (21-51); MDiff Complete? YES; Mean Corpuscular Hemoglobin 30.1 pg (27.0-31.0); Mean Platelet Volume 7.4 fL (7.4-10.4); Monocytes 11 % (0-10); Neutrophil 74 % (42-75); Platelet Count 609 thou/uL (130-400); Platelet Morphology Comment Appears Increased; RBC Distribution Width 11.5 % (11.5-14.5); Red Blood Cell (RBC) Count 4.51 mill/uL (4.20-5.40); White Blood Cell (WBC) Count 17.6 thou/uL (4.8-10.8)
[2020-04-13] MEDS: Aspirin 325 mg Enteric Coated Tablet PO SCH (09:16)
[2020-04-13] MEDS: metFORMIN 500 MG TAB PO SCH ×2 (09:17→16:09)
[2020-04-13] MEDS: Ascorbic Acid 500 mg Chewable Tablet PO SCH (09:17)
[2020-04-13] MEDS: Amlodipine 5 MG TAB PO SCH (09:17)
[2020-04-13] MEDS: Folic Acid/Vit B Comp W-C PO SCH (09:17)
[2020-04-13] MEDS: Atorvastatin Calcium 10 MG TAB PO SCH (09:17)
[2020-04-13] MEDS: Dexamethasone 6 MG in Sodium Chloride 0.9% 50 ML IVPB SCH (09:17)
[2020-04-13] MEDS: Metoprolol Tartrate 50 MG TAB PO SCH ×2 (09:17→20:43)
[2020-04-13] MEDS: Enoxaparin Sodium 40 MG/0.4 ML SYRINGE SC SCH ×2 (09:18→20:45)
--- NOTE | 2020-04-13 10:41 | PDOC.HOSPP ---
- Subjective Encounter Date: 04/13/20 Encounter Time: 10:00 Subjective: has cough, no fever feels better wants to walk more if staff can help her is eating better - Objective Vital Signs & Weight: Vital Signs (12 hours) Temp Pulse Resp BP BP Pulse Ox 04/13/20 03:38 97.8 F 71 26 H 161/72 H 97 04/13/20 00:50 98.1 F 70 18 158/73 H 93 L Weight Admit Weight 150 lb Weight 153 lb 12.8 oz I&O: 04/12/20 04/13/20 04/14/20 06:59 06:59 06:59 Intake Total 965 1539 Output Total 2300 550 Balance -1335 989 Result Diagrams: 04/13/20 04:29 04/13/20 04:29 Additional Labs: Accuchecks 04/13/20 04/12/20 04/12/20 04:11 20:15 16:53 POC Glucose 84 250 H 304 H 04/12/20 10:36 POC Glucose 120 H Hospitalist ROS - Medication Medications: Active Medications Generic Name Dose Route Start Last Admin Trade Name Freq PRN Reason Stop Dose Admin Albuterol Sulfate 2 puff 04/08/20 18:30 04/13/20 09:18 Albuterol 200 Puff (6.7gm Inhaler) INH 2 puff [id number] FRANCIS Administration Amlodipine Besylate 5 mg 04/10/20 09:00 04/13/20 09:17 Amlodipine 5 Mg Tab PO 5 mg DAILY FRANCIS Administration Ascorbic Acid 1,000 mg 04/10/20 09:00 04/13/20 09:17 Ascorbic Acid 500 Mg Chewable Tablet PO 1,000 mg DAILY FRANCIS Administration Aspirin 325 mg 04/10/20 09:00 04/13/20 09:16 Aspirin 325 Mg Enteric Coated Tablet PO 325 mg DAILY FRANCIS Administration Atorvastatin Calcium 10 mg 04/10/20 09:00 04/13/20 09:17 Atorvastatin Calcium 10 Mg Tab PO 10 mg DAILY FRANCIS Administration Enoxaparin Sodium 40 mg 04/09/20 21:00 04/13/20 09:18 Enoxaparin Sodium 40 Mg/0.4 Ml Syringe SC 40 mg BID FRANCIS Administration Dexamethasone 6 mg/ Sodium 50.6 mls @ 101.2 mls/hr 04/09/20 09:00 04/13/20 09:17 Chloride IVPB 50.6 mls DAILY FRANCIS Administration Insulin Glargine 35 units/ 0.35 mls @ 0 mls/hr 04/09/20 21:00 04/12/20 20:11 Miscellaneous Medication SC 0.35 mls HS FRANCIS Administration Remdesivir 100 mg/ Sodium 250 mls @ 250 mls/hr 04/10/20 20:00 04/12/20 20:11 Chloride IV 04/13/20 20:59 250 mls 2000 FRANCIS Administration Insulin Human Lispro 0 units 04/08/20 18:41 04/10/20 17:04 Humalog 300 Units/3 Ml Vial SC 5 unit .MILD SLIDING SCALE PRN Administration Mild Correctional Scale Insulin Human Lispro 0 units 04/08/20 21:04 04/08/20 21:29 Humalog 300 Units/3 Ml Vial SC 5 unit .BEDTIME SLIDING SC PRN Administration Bedtime Correctional Scale Metformin HCl 1,000 mg 04/09/20 17:00 04/13/20 09:17 Metformin 500 Mg Tab PO 1,000 mg BID-WM FRANCIS Administration Metoprolol Tartrate 50 mg 04/09/20 21:00 04/13/20 09:17 Metoprolol Tartrate 50 Mg Tab PO 50 mg BID FRANCIS Administration Vitamin B Complex/Vit C/Folic Acid 1 tab 04/10/20 09:00 04/13/20 09:17 Folic Acid/Vit B Comp W-C PO 1 tab DAILY FRANCIS Administration - Exam General Appearance: awake alert Eye: PERRL, anicteric sclera ENT: no oropharyngeal lesions, moist mucosa Neck: supple, no JVD Heart: RRR, no murmur Respiratory: no rales, rhonchi, wheezes Gastrointestinal: soft, non-tender, non-distended, normal bowel sounds Extremities: no cyanosis, no edema Neurological: cranial nerve grossly intact, no focal deficits Hosp A/P (1) Pneumonia due to COVID-19 virus Code(s): U07.1 - COVID-19; J12.89 - OTHER VIRAL PNEUMONIA Status: Acute (2) Acute respiratory failure with hypoxemia Code(s): J96.01 - ACUTE RESPIRATORY FAILURE WITH HYPOXIA Status: Acute (3) Asthma Code(s): J45.909 - UNSPECIFIED ASTHMA, UNCOMPLICATED Status: Chronic Qualifiers: Asthma severity: mild Asthma persistence: intermittent Asthma complication type: uncomplicated Qualified Code(s): J45.20 - Mild intermittent asthma, uncomplicated (4) Diabetes mellitus type 2 in nonobese Code(s): E11.9 - TYPE 2 DIABETES MELLITUS WITHOUT COMPLICATIONS Status: Chronic (5) Hypertension Code(s): I10 - ESSENTIAL (PRIMARY) HYPERTENSION Status: Chronic Qualifiers: Hypertension type: essential hypertension Qualified Code(s): I10 - Essential (primary) hypertension - Plan is on decadron, remdesivir and nasal oxygen continue asp, lovenox bid, lantus, metformin and lopressor hemostable she will be getting her last dose of remdesivir this evening dc plan in am with nasal canula O2 and HH with PT mobilize as tolerated in the room, PT eval
--- NOTE | 2020-04-13 13:26 | EKG ---
Test Reason : Blood Pressure : / mmHG Vent. Rate : 105 BPM Atrial Rate : 105 BPM P-R Int : 130 ms QRS Dur : 070 ms QT Int : 338 ms P-R-T Axes : -14 011 -79 degrees QTc Int : 446 ms Sinus tachycardia Anterior infarct , age undetermined Abnormal ECG Confirmed by MAGDIEL CAM DO ([id number]), industrial editor NIKKI SCHWARZ ([id number]) on 04/13/2020 1:25:49 PM Referred By: Confirmed By:MAGDIEL CAM DO
[2020-04-13] MEDS: REMDESIVIR (EUA) 100 MG in Sodium Chloride 0.9% 250 ML 230 ML IV SCH (20:45)
[2020-04-13] MEDS: Insulin Glargine 35 UNITS in Pre-Filled Syringe 1 EACH SC SCH (21:38)
[2020-04-14] MEDS: Albuterol 200 PUFF (6.7GM INHALER) INH SCH ×4 (02:08→15:29)
[2020-04-14 05:57] LABS: Anion Gap 15 mmol/L (10-20); BUN (Urea Nitrogen) 14 mg/dL (9.8-20.1); CRP (Inflammatory) 5.53 mg/dL (= or < 0.5); Calc. Creatinine Clearance 85 mL/min (70-130); Carbon Dioxide 20 mmol/L (23-31); Chloride 100 mmol/L (98-107); Estimated GFR-MDRD Greater than 90; Glucose 80 mg/dL (83-110); Potassium 3.9 mmol/L (3.5-5.1); Sodium 131 mmol/L (136-145)
[2020-04-14 05:59] LABS: ALT (SGPT) 19 U/L (8-55); AST (SGOT) 25 U/L (5-34); Albumin 2.7 g/dL (3.4-4.8); Alkaline Phosphatase 66 U/L (40-110); Bilirubin, Direct 0.2 mg/dL (0.1-0.3); Bilirubin, Total 0.4 mg/dL (0.2-1.2); Protein, Total 5.7 g/dL (6.0-8.3)
[2020-04-14] MEDS: Enoxaparin Sodium 40 MG/0.4 ML SYRINGE SC SCH (10:44)
[2020-04-14] MEDS: Aspirin 325 mg Enteric Coated Tablet PO SCH (10:45)
[2020-04-14] MEDS: metFORMIN 500 MG TAB PO SCH (10:45)
[2020-04-14] MEDS: Metoprolol Tartrate 50 MG TAB PO SCH (10:45)
[2020-04-14] MEDS: Amlodipine 5 MG TAB PO SCH (10:45)
[2020-04-14] MEDS: Folic Acid/Vit B Comp W-C PO SCH (10:45)
[2020-04-14] MEDS: Atorvastatin Calcium 10 MG TAB PO SCH (10:45)
[2020-04-14] MEDS: Ascorbic Acid 500 mg Chewable Tablet PO SCH (10:46)
[2020-04-14] MEDS: Dexamethasone 6 MG in Sodium Chloride 0.9% 50 ML IVPB SCH (10:46)
--- NOTE | 2020-04-14 13:54 | DIS ---
DATE OF ADMISSION: 04/08/2020 DATE OF DISCHARGE: 04/13/2020 DISCHARGE DISPOSITION: Home with Home Health. PRIMARY DISCHARGE DIAGNOSES: COVID-19 pneumonia, acute respiratory failure with hypoxia, history of mild intermittent asthma, diabetes mellitus type 2, hypertension. PROCEDURES DONE DURING HOSPITALIZATION: Chest x-ray done on the day of admission showed bilateral patchy infiltrates with pneumonia. Blood cultures x2, no growth. Urine culture, no growth. White count of 17, H and H 13 and 41, platelet count 609. D-dimer was 0.79 on the day of admission. Discharge BUN and creatinine are 14 and 0.6. CRP on the day of discharge 5.5, this was 31.35 on the day of admission. Ferritin 150.9 on the day of discharge. AST and ALT 25 and 19 on the day of discharge. COVID-19 PCR was detected on 04/08/2020. DISCHARGE MEDICATIONS: 1. Norvasc 5 mg p.o. daily. 2. Lipitor 10 mg p.o. daily. 3. Colace 100 mg p.o. daily p.r.n. 4. Aspirin 325 mg p.o. daily. 5. Levemir 35 units subcu at bedtime. 6. Metformin 1000 mg twice daily. 7. Metoprolol 50 mg twice daily. 8. Semaglutide 5 mg subcu once weekly on Sundays. 9. Dexamethasone 6 mg p.o. daily for another 4 days. 10. Albuterol inhaler q.6 hourly p.r.n. ALLERGIES: NO KNOWN DRUG ALLERGIES. DISCHARGE PLAN: The patient to follow up with her primary care physician, nurse practitioner, Ms. Wayne Mooney. BRIEF COURSE DURING HOSPITALIZATION: The patient initially got admitted on the with complaints of cough, shortness of breath, and fever. Her initial x-ray was suspicious for COVID pneumonia. Her COVID-19 PCR came back positive. She was given Decadron and was placed on remdesivir. The patient has finished 4 days of remdesivir. She needed 2 L oxygen by nasal cannula. She otherwise has remained hemodynamically stable. The patient is ambulating in the room. She is wanting to go home today. Case Management consultation has been placed for home health with PT and nursing along with 2 L oxygen by nasal cannula for home use. She has been counseled to follow up with her primary care physician in 1 week. Please note the patient was also evaluated by Dr. Cowart. I have seen and examined the patient on the day of discharge. Job ID: [id number]
[2020-04-14 15:47] VITALS: BP 136/61; TEMP 98.3
--- NOTE | 2020-04-16 05:52 | PQF ---
CLINICAL DOCUMENTATION CLARIFICATION FORM: Dear : Miguel Dozier Date / Time: 04/16/2020 1291 Please exercise your independent, professional judgment in responding to the clarification form. Clinical indicators are provided on the bottom of this form for your review Please check appropriate box(es) to clarify if the following diagnosis has been ruled in our ruled out: Sepsis [ x] Ruled in diagnosis [ ] Continue to treat [ x] Resolved [ ] Ruled out diagnosis [ ] Improving [ ] Cannot rule out diagnosis [ ] Other diagnosis [ ] Unable to determine Physician Signature: Date/Time: For continuity of documentation, please document condition throughout progress notes and discharge summary. Thank You. To be completed by CDI/Coding staff for physician review: Present Clinical Indicators - Signs / Symptoms / Labs Results and Location in Medical Record [X] WBC 19.0, Neutrophils 90.8, Plt count 443, Lactic acid 1.4 Laboratory 04/08 [X] Blood culture: No growth at 48 hrs Microbiology 04/08 [X] BP 146/73, Pulse 98, Resp 32, Temp 102.9 Vital signs 04/08 [X] Admitted with cough and SOB H&p p1 04/08 Dr Marquez [X] Covid Pneumonia H&p p3 04/08 Dr Marquez [X] Sepsis likely 2/2 to Pneumonia-likely Covid H&p p3 04/08 Dr Marquez [X] Acute respiratory failure H&p p3 04/08 Dr Marquez Present Risk Factors Results and Location in Medical Record [X] 74 year-old Female H&p p1 04/08 Dr Marquez [X] DM H&p p1 04/08 Dr Marquez [X] HTN H&p p1 04/08 Dr Marquez [X] Asthma H&p p1 04/08 Dr Marquez [X] Covid Pneumonia H&p p3 04/08 Dr Marquez Present Treatments Results and Location in Medical Record [X] IV Azithromycin 500 mg SEP 04 [X] IV Ceftriaxone 1 gm SEP 04 [X] IV Zosyn 4.5 gm SEP 04 [X] IV Vancomycin 1 gm SEP 04 [X] IV Redesiver 200 mg SEP 04 [X] Blood culture Microbiology 04/08 [X] ID consult Consult Dr Cowart 04/09 CDS/Extension Clerk Signature: Elif Remy Phone #: [phone] Date/Time: 04/16/2020 0550 This is a permanent part of the Medical Record [facility]
== END 2020-04-14 16:50 | disposition home health service (06) | DRG 871 ==
LOC: ERS 10:21 → 2SW 12:46
PROVIDERS: ADMIT Student in an Organized Health Care Education/Training Program; ATTEND Student in an Organized Health Care Education/Training Program
PROC: 8E0ZXY6 Isolation (ICD-10-PCS; 2020-04-08)
PROC: XW033E5 Introduction of Remdesivir Anti-infective into Peripheral Vein, Percutaneous Approach, New Technology Group 5 (ICD-10-PCS; principal; 2020-04-09)
PROC: 0T9B70Z Drainage of Bladder with Drainage Device, Via Natural or Artificial Opening (ICD-10-PCS; 2020-04-11)
DX: A41.89 Other specified sepsis (principal); U07.1 COVID-19; J12.89 Other viral pneumonia; J96.01 Acute respiratory failure with hypoxia; E87.1 Hypo-osmolality and hyponatremia; I10 Essential (primary) hypertension; J45.20 Mild intermittent asthma, uncomplicated; E11.9 Type 2 diabetes mellitus without complications; Z90.49 Acquired absence of other specified parts of digestive tract; Z98.51 Tubal ligation status; Z79.899 Other long term (current) drug therapy; Z79.4 Long term (current) use of insulin; Z79.82 Long term (current) use of aspirin; Z79.1 Long term (current) use of non-steroidal anti-inflammatories (NSAID)
CPT/HCPCS: 36415; 36416; 71045; 80048; 80053; 80076; 81003; 81015; 82550; 82728; 82805; 83605; 84484; 85025; 85379; 86140; 87040; 87086; 93005; 96365; 96366; 96375; J0456; J0696; J1100; J1650; J1815; J2543; J2930; J3370; J3490; J7050; U0002

== ENCOUNTER 2022-06-24 23:54 | Inpatient (IN) | payer MEDICARE, MEDICAID ==
[2022-06-25 02:39] VITALS: BMI 21.6
[2022-06-25] MEDS ORDERED: Ondansetron PF 4 MG/2 ML Vial IVP PRN (03:26)
[2022-06-25] MEDS ORDERED: Acetaminophen 325 MG TAB PO PRN (03:26)
[2022-06-25] MEDS ORDERED: HumaLOG 300 UNITS/3 ML VIAL SC PRN ×2 (03:28)
[2022-06-25] MEDS ORDERED: Dextrose 50% Abboject 50 ML SYRINGE SLOW IVP PRN (03:28)
[2022-06-25] MEDS ORDERED: Dextrose 5% in Water 1,000 ML IV PRN (03:28)
[2022-06-25 05:53] LABS: #Lymphocytes 0.8 thou/uL (1.20-3.40); #Monocytes 0.2 thou/uL (0.11-0.59); #Neutrophils 13.1 thou/uL (1.40-6.50); %Eosinophils 0.2 % (0.0-10.0); %Lymphocytes 5.7 % (21.0-51.0); %Monocytes 1.5 % (0.0-10.0); %Neutrophils 92.6 % (42.0-75.0); Hemoglobin 12.7 g/dL (12.0-16.0); Mean Corpuscular HGB CONC 32.9 g/dL (32.0-36.0); Mean Corpuscular Hemoglobin 29.4 pg (27.0-31.0); Mean Corpuscular Volume 89.4 fl (78.0-98.0); Mean Platelet Volume 7.1 fL (7.4-10.4); Platelet Count 370 10x3/uL (130-400); RBC Distribution Width 12.2 % (11.5-14.5); Red Blood Cell (RBC) Count 4.32 mill/uL (4.20-5.40); White Blood Cell (WBC) Count 14.1 10x3/uL (4.8-10.8)
[2022-06-25 06:25] LABS: Anion Gap 15 mmol/L (10-20); BUN (Urea Nitrogen) 8 mg/dL (9.8-20.1); Calc. Creatinine Clearance 61 mL/min (70-130); Calcium 8.7 mg/dL (7.8-10.44); Carbon Dioxide 20 mmol/L (23-31); Chloride 100 mmol/L (98-107); Estimated GFR 90; Glucose 244 mg/dL (83-110); Potassium 3.4 mmol/L (3.5-5.1); Sodium 132 mmol/L (136-145)
[2022-06-25] MEDS ORDERED: Potassium Chloride 20 MEQ TAB PO SCH (08:30)
[2022-06-25] MEDS: Ciprofloxacin HCL/Dexameth Otic Drops 7.5 ml Bottle L EAR SCH ×2 (08:58→21:10)
[2022-06-25] MEDS: guaiFENesin/DM ER PO SCH ×2 (08:59→21:10)
[2022-06-25] MEDS ORDERED: Non-Formulary Item 1 EACH (Omeprazole [Omeprazole] 40 MG Capsule.Dr) PO SCH (09:00)
[2022-06-25] MEDS ORDERED: Insulin Glargine 30 UNITS/0.3 ML VIAL SC SCH (09:00)
[2022-06-25] MEDS: Lisinopril 10 MG TAB PO SCH (09:00)
[2022-06-25] MEDS ORDERED: Erythromycin Base 0.5% Oint 1 GM TUBE EA EYE SCH (09:00)
[2022-06-25] MEDS ORDERED: Non-Formulary Item 1 EACH (Insulin Detemir [Levemir] 100 UNIT/ML Vial) SQ SCH (09:00)
[2022-06-25] MEDS: Enoxaparin Sodium 40 MG/0.4 ML SYRINGE SC SCH (09:01)
[2022-06-25] MEDS: Metoprolol Tartrate 50 MG TAB PO SCH ×2 (09:01→21:11)
[2022-06-25] MEDS: methylPREDNISolone Sod Succ 40 MG VIAL IVP SCH ×2 (09:01→21:10)
[2022-06-26] MEDS ORDERED: predniSONE 5 MG TAB PO SCH (08:00)
[2022-06-26] MEDS ORDERED: Insulin Glargine 30 UNITS/0.3 ML VIAL SC SCH (09:00)
[2022-06-26 09:28] LABS: #Eosinphils 0.1 thou/uL (0.0-0.7); #Lymphocytes 1.8 thou/uL (1.20-3.40); #Monocytes 1.3 thou/uL (0.11-0.59); %Basophils 0.2 % (0.0-1.0); %Eosinophils 0.5 % (0.0-10.0); %Lymphocytes 13.6 % (21.0-51.0); %Monocytes 10.2 % (0.0-10.0); %Neutrophils 75.6 % (42.0-75.0); Mean Corpuscular HGB CONC 33.8 g/dL (32.0-36.0); Mean Corpuscular Hemoglobin 29.9 pg (27.0-31.0); Mean Corpuscular Volume 88.6 fl (78.0-98.0); Mean Platelet Volume 7.5 fL (7.4-10.4); Platelet Count 449 10x3/uL (130-400); RBC Distribution Width 12.4 % (11.5-14.5); Red Blood Cell (RBC) Count 4.34 mill/uL (4.20-5.40); White Blood Cell (WBC) Count 13.2 10x3/uL (4.8-10.8)
[2022-06-26 09:47] LABS: Anion Gap 12 mmol/L (10-20); BUN (Urea Nitrogen) 13 mg/dL (9.8-20.1); Calc. Creatinine Clearance 51 mL/min (70-130); Carbon Dioxide 23 mmol/L (23-31); Chloride 99 mmol/L (98-107); Estimated GFR 76; Glucose 254 mg/dL (83-110); Magnesium 1.9 mg/dL (1.6-2.6); Potassium 3.6 mmol/L (3.5-5.1); Sodium 130 mmol/L (136-145)
[2022-06-26] MEDS: Ciprofloxacin HCL/Dexameth Otic Drops 7.5 ml Bottle L EAR SCH (10:08)
[2022-06-26] MEDS: guaiFENesin/DM ER PO SCH (10:09)
[2022-06-26] MEDS: Lisinopril 10 MG TAB PO SCH (10:10)
[2022-06-26] MEDS: Metoprolol Tartrate 50 MG TAB PO SCH (10:10)
[2022-06-26] MEDS: Enoxaparin Sodium 40 MG/0.4 ML SYRINGE SC SCH (10:14)
[2022-06-26 16:43] VITALS: BP 149/86; TEMP 97.2
== END 2022-06-26 15:20 | disposition home health service (06) | DRG 699 ==
LOC: SURG A 23:54 → OBSVTOIN 06-25 12:22
PROVIDERS: ADMIT Internal Medicine; ATTEND Internal Medicine
DX: T83.510A Infection and inflammatory reaction due to cystostomy catheter, initial encounter (principal); N30.00 Acute cystitis without hematuria; B34.8 Other viral infections of unspecified site; I10 Essential (primary) hypertension; E11.9 Type 2 diabetes mellitus without complications; J20.9 Acute bronchitis, unspecified; E87.6 Hypokalemia; H10.30 Unspecified acute conjunctivitis, unspecified eye; H60.90 Unspecified otitis externa, unspecified ear; F03.90 Unspecified dementia, unspecified severity, without behavioral disturbance, psychotic disturbance, mood disturbance, and anxiety; J45.909 Unspecified asthma, uncomplicated; R53.81 Other malaise; Z96.651 Presence of right artificial knee joint; E78.5 Hyperlipidemia, unspecified; Z98.890 Other specified postprocedural states; Z79.899 Other long term (current) drug therapy; Z79.4 Long term (current) use of insulin; Z90.49 Acquired absence of other specified parts of digestive tract; Z98.51 Tubal ligation status; Z80.0 Family history of malignant neoplasm of digestive organs; Z87.891 Personal history of nicotine dependence
CPT/HCPCS: 36415; 36416; 80048; 83735; 85025; 87633; 94640; J1650; J1815; J1956; J2920; J7512; J7620

== ENCOUNTER 2022-12-29 18:15 | Inpatient (IN) | payer MEDICARE, MEDICAID ==
[~2022-12-29 18:15] MED LIST: Iopamidol-370 76% 500 ML MDV (1 ML CHARGE) ONE
[2022-12-29 19:32] LABS: #Basophils 0.1 thou/uL (0.0-0.2); #Eosinphils 0.1 thou/uL (0.0-0.7); #Monocytes 1.5 thou/uL (0.11-0.59); #Neutrophils 9.6 thou/uL (1.40-6.50); %Basophils 0.8 % (0.0-1.0); %Eosinophils 0.5 % (0.0-10.0); %Lymphocytes 23.4 % (21.0-51.0); %Neutrophils 64.5 % (42.0-75.0); Hemoglobin 11.6 g/dL (12.0-16.0); Mean Corpuscular HGB CONC 35.4 g/dL (32.0-36.0); Mean Corpuscular Hemoglobin 28.1 pg (27.0-31.0); Mean Corpuscular Volume 79.4 fl (78.0-98.0); Platelet Count 527 10x3/uL (130-400); RBC Distribution Width 19.5 % (11.5-14.5); Red Blood Cell (RBC) Count 4.13 mill/uL (4.20-5.40); White Blood Cell (WBC) Count 14.9 10x3/uL (4.8-10.8)
[2022-12-29] MEDS ORDERED: Piperacillin/Tazobactam 3.375 GM VIAL ONE (20:04)
[2022-12-29 20:09] LABS: ALT (SGPT) 12 U/L (8-55); AST (SGOT) 21 U/L (5-34); Albumin 3.3 g/dL (3.4-4.8); Alkaline Phosphatase 61 U/L (40-110); Anion Gap 16 mmol/L (10-20); BUN (Urea Nitrogen) 32 mg/dL (9.8-20.1); Bilirubin, Total 0.6 mg/dL (0.2-1.2); Calc. Creatinine Clearance 0 mL/min (70-130); Calcium 8.5 mg/dL (7.8-10.44); Carbon Dioxide 16 mmol/L (23-31); Chloride 109 mmol/L (98-107); Estimated GFR 48; Globulin 3.3 g/dL (2.4-3.5); Glucose 148 mg/dL (83-110); Potassium 3.2 mmol/L (3.5-5.1); Protein, Total 6.6 g/dL (5.8-8.1); Sodium 138 mmol/L (136-145)
[2022-12-29 20:32] LABS: Clarity Cloudy (Clear); Leukocyte Large (Negative); Nitrite Negative (Negative); Protein, Urine (Dipstick) 300 mg/dL (Neg-Trace)
[2022-12-29 20:33] LABS: Bacteria/HPF 3+ HPF (None Seen); Bilirubin Small (Negative); Blood, Urine Trace (Negative); CAUTI Indications for Culture Dysuria,urgency,freq; Glucose, Urine (Dipstick) Negative (Negative); Ketone, Urine Negative (Negative); RBC/HPF 0-3 HPF (0-3); Squamous Epithelial 0-3 HPF (0-3); Urobilinogen 0.2 mg/dL (Less than 2); WBC/HPF 21-50 HPF (0-3)
[2022-12-29 20:35] LABS: Urine Culture Reflex Yes Yes
[2022-12-29] MEDS ORDERED: fentaNYL 50 mcg/mL 1 mL Vial ONE (22:15)
[2022-12-29] MEDS ORDERED: Ondansetron ODT 8 MG TAB PO PRN (23:15)
[2022-12-29] MEDS ORDERED: Ondansetron PF 4 MG/2 ML Vial IVP PRN (23:15)
[2022-12-29 23:21] VITALS: BMI 20.1
[2022-12-29] MEDS ORDERED: Piperacillin/Tazobactam 3.375 GM in Sodium Chloride 0.9% 100 ML IVPB SCH (23:59)
[2022-12-30] MEDS: D5 1/2 NS w/20 mEq KCL 1,000 ML IV SCH ×2 (00:03→01:03)
[2022-12-30] MEDS ORDERED: Dextrose 50% Abboject 50 ML SYRINGE SLOW IVP PRN (00:29)
[2022-12-30] MEDS ORDERED: HumaLOG 300 UNITS/3 ML VIAL SC PRN (00:29)
[2022-12-30] MEDS ORDERED: Glucagon 1 MG/ML KIT IM PRN (00:29)
[2022-12-30] MEDS ORDERED: Dextrose 5% in Water 1,000 ML IV PRN (00:29)
[2022-12-30] MEDS ORDERED: Acetaminophen 325 MG TAB PO PRN (00:30)
[2022-12-30] MEDS ORDERED: Acetaminophen 650 MG Suppository PR PRN (00:30)
[2022-12-30] MEDS ORDERED: Electrolyte Replacement Protocol 1 EACH FS PRN (00:33)
[2022-12-30] MEDS: Dextrose 5 %-0.45 % NaCl 1,000 ML IV SCH ×2 (00:55→06:53)
[2022-12-30] MEDS: Meropenem 1 GM in Sodium Chloride 0.9% 100 ML IVPB SCH ×3 (02:33→17:14)
[2022-12-30 06:32] LABS: #Basophils 0.1 thou/uL (0.0-0.2); #Eosinphils 0.2 thou/uL (0.0-0.7); #Monocytes 1.2 thou/uL (0.11-0.59); #Neutrophils 6.1 thou/uL (1.40-6.50); %Basophils 1.1 % (0.0-1.0); %Eosinophils 1.5 % (0.0-10.0); %Lymphocytes 24.6 % (21.0-51.0); %Monocytes 11.8 % (0.0-10.0); %Neutrophils 60.3 % (42.0-75.0); Hemoglobin 9.7 g/dL (12.0-16.0); Mean Corpuscular HGB CONC 34.2 g/dL (32.0-36.0); Mean Corpuscular Hemoglobin 27.4 pg (27.0-31.0); Mean Corpuscular Volume 80.2 fl (78.0-98.0); Mean Platelet Volume 9.2 fL (7.4-10.4); Platelet Count 448 10x3/uL (130-400); RBC Distribution Width 19.5 % (11.5-14.5); Red Blood Cell (RBC) Count 3.54 mill/uL (4.20-5.40); White Blood Cell (WBC) Count 10.2 10x3/uL (4.8-10.8)
[2022-12-30 06:41] LABS: Hemoglobin A1c 6.8 % (4.0-6.0)
[2022-12-30 07:00] LABS: Anion Gap 8 mmol/L (10-20); BUN (Urea Nitrogen) 24 mg/dL (9.8-20.1); Calc. Creatinine Clearance 44 mL/min (70-130); Calcium 7.7 mg/dL (7.8-10.44); Carbon Dioxide 18 mmol/L (23-31); Chloride 112 mmol/L (98-107); Estimated GFR 66; Glucose 199 mg/dL (83-110); Sodium 136 mmol/L (136-145)
[2022-12-30 07:23] LABS: Potassium 2.3 mmol/L (3.5-5.1)
[2022-12-30] MEDS ORDERED: Potassium Chloride 20 MEQ in Premix Bag 1 BAG IVPB SCH (07:45)
[2022-12-30] MEDS ORDERED: Sodium Bicarb 50 MEQ/50 ML VIAL IVP SCH ×2 (07:45→16:00)
[2022-12-30] MEDS ORDERED: Lactated Ringer's 1,000 ML IV SCH ×2 (08:00→14:15)
[2022-12-30] MEDS ORDERED: Spironolactone 25 MG TAB PO SCH (08:00)
[2022-12-30] MEDS ORDERED: metFORMIN 500 MG TAB PO SCH (08:00)
[2022-12-30 08:08] LABS: Magnesium 1.2 mg/dL (1.6-2.6)
[2022-12-30] MEDS: Potassium Chloride 20 MEQ in Premix Bag 1 BAG IVPB SCH ×3 (08:23→12:56)
[2022-12-30] MEDS: Lisinopril 10 MG TAB PO SCH (08:25)
[2022-12-30] MEDS ORDERED: Polyethylene Glycol 3350 17 GM Packet PO SCH (09:00)
[2022-12-30] MEDS ORDERED: Insulin Glargine 30 UNITS/0.3 ML VIAL SC SCH (09:00)
[2022-12-30] MEDS ORDERED: Magnesium Sulfate In Water 4 GM in Premix Bag 1 BAG IVPB SCH (10:00)
[2022-12-30] MEDS: Citalopram 10 MG TAB PO SCH (10:10)
[2022-12-30] MEDS ORDERED: Potassium Chloride 20 MEQ in Lactated Ringer's 1,000 ML IV SCH (12:30)
[2022-12-30 13:26] LABS: Anion Gap 14 mmol/L (10-20); BUN (Urea Nitrogen) 19 mg/dL (9.8-20.1); Calc. Creatinine Clearance 45 mL/min (70-130); Calcium 8.2 mg/dL (7.8-10.44); Carbon Dioxide 19 mmol/L (23-31); Chloride 111 mmol/L (98-107); Estimated GFR 68; Glucose 127 mg/dL (83-110); Sodium 141 mmol/L (136-145)
[2022-12-30 13:41] LABS: Potassium 2.5 mmol/L (3.5-5.1)
[2022-12-30] MEDS ORDERED: Potassium Chloride 40 MEQ in Premix Bag 1 BAG IVPB SCH ×2 (14:00→16:00)
[2022-12-30] MEDS ORDERED: Sevoflurane 250 ML INH ANEST BOTTLE ONE (15:19)
[2022-12-30 17:55] LABS: Anion Gap 12 mmol/L (10-20); BUN (Urea Nitrogen) 17 mg/dL (9.8-20.1); Calc. Creatinine Clearance 46 mL/min (70-130); Calcium 8.3 mg/dL (7.8-10.44); Carbon Dioxide 20 mmol/L (23-31); Chloride 112 mmol/L (98-107); Estimated GFR 71; Glucose 126 mg/dL (83-110); Magnesium 2.1 mg/dL (1.6-2.6); Potassium 3.2 mmol/L (3.5-5.1); Sodium 141 mmol/L (136-145)
[2022-12-30] MEDS ORDERED: fentaNYL PF 100 MCG/2 ML SYRINGE ONE (18:06)
[2022-12-30] MEDS ORDERED: Phenylephrine 10 MG/ML VIAL ONE (18:07)
[2022-12-30] MEDS ORDERED: Vasopressin 20 UNITS/ML VIAL ONE (18:07)
[2022-12-30] MEDS ORDERED: PROPOFOL 200 MG/20 ML VIAL ONE (18:25)
[2022-12-30] MEDS ORDERED: Rocuronium Bromide 10 MG/ML (10ML VIAL) ONE (18:25)
[2022-12-30] MEDS ORDERED: NEOSTIGMINE 3 MG/3 ML SYR 3 MG/3 ML SYRINGE ONE (18:25)
[2022-12-30] MEDS ORDERED: Ondansetron PF 4 MG/2 ML Vial ONE (18:25)
[2022-12-30] MEDS ORDERED: Lidocaine 1% PF 5 ML VIAL ONE (18:25)
[2022-12-30] MEDS ORDERED: Succinylcholine 200 MG/10 ml SYRINGE FS ONE (18:25)
[2022-12-30] MEDS ORDERED: Glycopyrrolate 0.2 MG/ML 5 ML SYRINGE ONE (18:25)
[2022-12-30] MEDS ORDERED: PHENYLEPHRINE-NS 100 MCG/ML 10 ML SYRINGE ONE (18:25)
[2022-12-30] MEDS ORDERED: traMADol HCl 50 MG TAB PO PRN (20:06)
[2022-12-30] MEDS ORDERED: Morphine 2 MG/ML VIAL SLOW IVP PRN (20:08)
[2022-12-30] MEDS ORDERED: Morphine Sulfate 2 MG/ML SYRINGE SLOW IVP PRN (20:10)
[2022-12-30] MEDS ORDERED: Promethazine HCl 25 MG/ML VIAL IM PRN (20:10)
[2022-12-30] MEDS ORDERED: Ondansetron HCl/PF 4 MG/2 ML Vial IVP PRN (20:10)
[2022-12-30] MEDS ORDERED: fentaNYL 50 mcg/mL 1 mL Vial ONE (20:10)
[2022-12-30] MEDS ORDERED: Acetaminophen 500 MG TAB PO SCH (20:15)
[2022-12-30] MEDS ORDERED: Ondansetron ODT 4 MG TAB PO PRN (20:29)
[2022-12-30] MEDS ORDERED: Atorvastatin Calcium 40 MG TAB PO SCH (21:00)
[2022-12-30] MEDS: Potassium Chloride 20 MEQ in Lactated Ringer's 1,000 ML IV SCH (21:09)
[2022-12-30] MEDS: QUEtiapine 25 MG TAB PO SCH (21:15)
[2022-12-30] MEDS: Gabapentin 100 MG CAP PO SCH (21:15)
[2022-12-30] MEDS ORDERED: Ondansetron PF 4 MG/2 ML Vial IVP PRN (21:52)
[2022-12-31] MEDS ORDERED: Lactated Ringer's 500 ML IV SCH (01:45)
[2022-12-31] MEDS: Potassium Chloride 20 MEQ in Lactated Ringer's 1,000 ML IV SCH (03:53)
[2022-12-31 04:06] LABS: #Basophils 0.1 thou/uL (0.0-0.2); #Monocytes 1.1 thou/uL (0.11-0.59); #Neutrophils 18.4 thou/uL (1.40-6.50); %Basophils 0.2 % (0.0-1.0); %Lymphocytes 5.1 % (21.0-51.0); %Monocytes 5.2 % (0.0-10.0); %Neutrophils 88.9 % (42.0-75.0); Hemoglobin 9.6 g/dL (12.0-16.0); Mean Corpuscular HGB CONC 34.8 g/dL (32.0-36.0); Mean Corpuscular Hemoglobin 28.1 pg (27.0-31.0); Mean Corpuscular Volume 80.7 fl (78.0-98.0); Mean Platelet Volume 9.1 fL (7.4-10.4); Platelet Count 450 10x3/uL (130-400); RBC Distribution Width 19.9 % (11.5-14.5); Red Blood Cell (RBC) Count 3.42 mill/uL (4.20-5.40); White Blood Cell (WBC) Count 20.7 10x3/uL (4.8-10.8)
[2022-12-31 04:26] LABS: Phosphorus 1.6 mg/dL (2.3-4.7)
[2022-12-31 04:30] LABS: Anion Gap 17 mmol/L (10-20); BUN (Urea Nitrogen) 13 mg/dL (9.8-20.1); Calc. Creatinine Clearance 54 mL/min (70-130); Calcium 7.9 mg/dL (7.8-10.44); Carbon Dioxide 16 mmol/L (23-31); Chloride 113 mmol/L (98-107); Estimated GFR 86; Glucose 182 mg/dL (83-110); Magnesium 1.6 mg/dL (1.6-2.6); Potassium 4.8 mmol/L (3.5-5.1); Sodium 141 mmol/L (136-145)
[2022-12-31] MEDS ORDERED: Magnesium Sulfate In Water 4 GM in Premix Bag 1 BAG IVPB SCH (08:15)
[2022-12-31] MEDS: Acetaminophen 500 MG TAB PO SCH ×4 (08:22→20:53)
[2022-12-31] MEDS: Lisinopril 10 MG TAB PO SCH (08:23)
[2022-12-31] MEDS: Gabapentin 100 MG CAP PO SCH ×2 (08:23→14:38)
[2022-12-31] MEDS: Citalopram 10 MG TAB PO SCH (08:23)
[2022-12-31] MEDS: Sodium Chloride 0.45% 1,000 ML IV SCH ×3 (08:24→21:50)
[2022-12-31] MEDS ORDERED: Sodium Phosphate 30 MMOL in Sodium Chloride 0.9% 250 ML 250 ML IVPB SCH (10:00)
[2022-12-31] MEDS: HumaLOG 300 UNITS/3 ML VIAL SC PRN ×2 (12:14→17:25)
[2022-12-31] MEDS ORDERED: Meropenem 1 GM in Sodium Chloride 0.9% 100 ML IVPB SCH ×2 (16:00→22:00)
[2022-12-31] MEDS: QUEtiapine 25 MG TAB PO SCH (20:53)
[2023-01-01] MEDS: Meropenem 1 GM in Sodium Chloride 0.9% 100 ML IVPB SCH ×3 (00:19→17:49)
[2023-01-01 04:18] LABS: #Basophils 0.1 thou/uL (0.0-0.2); #Eosinphils 0.2 thou/uL (0.0-0.7); #Monocytes 1.6 thou/uL (0.11-0.59); #Neutrophils 10.6 thou/uL (1.40-6.50); %Basophils 0.4 % (0.0-1.0); %Eosinophils 1.5 % (0.0-10.0); %Monocytes 10.5 % (0.0-10.0); %Neutrophils 69.9 % (42.0-75.0); Hemoglobin 8.6 g/dL (12.0-16.0); Mean Corpuscular Hemoglobin 27.3 pg (27.0-31.0); Mean Corpuscular Volume 80.3 fl (78.0-98.0); Mean Platelet Volume 9.2 fL (7.4-10.4); Platelet Count 413 10x3/uL (130-400); RBC Distribution Width 20.5 % (11.5-14.5); Red Blood Cell (RBC) Count 3.15 mill/uL (4.20-5.40); White Blood Cell (WBC) Count 15.1 10x3/uL (4.8-10.8)
[2023-01-01 04:40] LABS: Anion Gap 9 mmol/L (10-20); BUN (Urea Nitrogen) 11 mg/dL (9.8-20.1); Calc. Creatinine Clearance 56 mL/min (70-130); Calcium 7.6 mg/dL (7.8-10.44); Carbon Dioxide 20 mmol/L (23-31); Chloride 109 mmol/L (98-107); Estimated GFR 89; Glucose 156 mg/dL (83-110); Magnesium 2.4 mg/dL (1.6-2.6); Phosphorus 2.5 mg/dL (2.3-4.7); Sodium 134 mmol/L (136-145)
[2023-01-01] MEDS: Sodium Chloride 0.45% 1,000 ML IV SCH ×2 (06:09→18:20)
[2023-01-01] MEDS: Acetaminophen 500 MG TAB PO SCH ×4 (08:23→20:50)
[2023-01-01] MEDS: Citalopram 10 MG TAB PO SCH (08:24)
[2023-01-01] MEDS: Lisinopril 10 MG TAB PO SCH (08:25)
[2023-01-01] MEDS: HumaLOG 300 UNITS/3 ML VIAL SC PRN (18:43)
[2023-01-01] MEDS: QUEtiapine 25 MG TAB PO SCH (20:51)
[2023-01-02] MEDS ORDERED: Sterile Water 10 ML VIAL FS SCH (00:30)
[2023-01-02] MEDS ORDERED: OLANZapine 10 MG VIAL IM SCH (00:30)
[2023-01-02] MEDS: Meropenem 1 GM in Sodium Chloride 0.9% 100 ML IVPB SCH ×3 (01:26→16:45)
[2023-01-02] MEDS: Acetaminophen 500 MG TAB PO SCH ×4 (08:00→20:49)
[2023-01-02] MEDS: Lisinopril 10 MG TAB PO SCH (08:00)
[2023-01-02] MEDS: Citalopram 10 MG TAB PO SCH (08:16)
[2023-01-02] MEDS: HumaLOG 300 UNITS/3 ML VIAL SC PRN (14:07)
[2023-01-02] MEDS: Sodium Chloride 0.45% 1,000 ML IV SCH (18:13)
[2023-01-02] MEDS: QUEtiapine 25 MG TAB PO SCH (20:49)
[2023-01-03] MEDS: Meropenem 1 GM in Sodium Chloride 0.9% 100 ML IVPB SCH ×3 (00:53→18:24)
[2023-01-03 07:06] LABS: #Basophils 0.1 thou/uL (0.0-0.2); #Eosinphils 0.3 thou/uL (0.0-0.7); #Monocytes 0.7 thou/uL (0.11-0.59); %Basophils 1.1 % (0.0-1.0); %Eosinophils 4.7 % (0.0-10.0); %Lymphocytes 28.7 % (21.0-51.0); %Monocytes 9.9 % (0.0-10.0); %Neutrophils 54.9 % (42.0-75.0); Hemoglobin 8.4 g/dL (12.0-16.0); Mean Corpuscular HGB CONC 33.5 g/dL (32.0-36.0); Mean Corpuscular Hemoglobin 27.7 pg (27.0-31.0); Mean Corpuscular Volume 82.8 fl (78.0-98.0); Mean Platelet Volume 9.4 fL (7.4-10.4); Platelet Count 387 10x3/uL (130-400); RBC Distribution Width 20.7 % (11.5-14.5); Red Blood Cell (RBC) Count 3.03 mill/uL (4.20-5.40); White Blood Cell (WBC) Count 7.3 10x3/uL (4.8-10.8)
[2023-01-03 07:24] LABS: Anion Gap 9 mmol/L (10-20); BUN (Urea Nitrogen) 9 mg/dL (9.8-20.1); Calc. Creatinine Clearance 67 mL/min (70-130); Calcium 7.4 mg/dL (7.8-10.44); Carbon Dioxide 19 mmol/L (23-31); Chloride 111 mmol/L (98-107); Estimated GFR 92; Glucose 102 mg/dL (83-110); Magnesium 1.7 mg/dL (1.6-2.6); Phosphorus 1.7 mg/dL (2.3-4.7); Potassium 3.4 mmol/L (3.5-5.1); Sodium 136 mmol/L (136-145)
[2023-01-03] MEDS ORDERED: Potassium Chloride 20 MEQ TAB PO SCH (08:00)
[2023-01-03] MEDS ORDERED: Magnesium Sulfate In Water 4 GM in Premix Bag 1 BAG IVPB SCH (08:15)
[2023-01-03] MEDS ORDERED: Potassium Phosphate 30 MMOL in Sodium Chloride 0.9% 250 ML 250 ML IVPB SCH (08:15)
[2023-01-03] MEDS: Acetaminophen 500 MG TAB PO SCH ×4 (09:02→22:41)
[2023-01-03] MEDS: Citalopram 10 MG TAB PO SCH (09:09)
[2023-01-03] MEDS: Lisinopril 10 MG TAB PO SCH (09:10)
[2023-01-03 18:39] LABS: Potassium 4.2 mmol/L (3.5-5.1)
[2023-01-03] MEDS: Sodium Bicarbonate Tab 325 MG TAB PO SCH (22:41)
[2023-01-03] MEDS: QUEtiapine 25 MG TAB PO SCH (22:41)
[2023-01-04] MEDS: Meropenem 1 GM in Sodium Chloride 0.9% 100 ML IVPB SCH ×4 (01:20→23:52)
[2023-01-04 05:41] LABS: #Basophils 0.1 thou/uL (0.0-0.2); #Eosinphils 0.4 thou/uL (0.0-0.7); #Monocytes 0.8 thou/uL (0.11-0.59); #Neutrophils 3.4 thou/uL (1.40-6.50); %Basophils 0.8 % (0.0-1.0); %Eosinophils 4.6 % (0.0-10.0); %Lymphocytes 37.8 % (21.0-51.0); %Monocytes 10.8 % (0.0-10.0); %Neutrophils 45.2 % (42.0-75.0); Hemoglobin 8.5 g/dL (12.0-16.0); Mean Corpuscular HGB CONC 33.9 g/dL (32.0-36.0); Mean Corpuscular Hemoglobin 27.4 pg (27.0-31.0); Mean Platelet Volume 9.4 fL (7.4-10.4); Platelet Count 397 10x3/uL (130-400); RBC Distribution Width 20.7 % (11.5-14.5); White Blood Cell (WBC) Count 7.6 10x3/uL (4.8-10.8)
[2023-01-04 06:10] LABS: Phosphorus 2.1 mg/dL (2.3-4.7)
[2023-01-04 06:14] LABS: Anion Gap 12 mmol/L (10-20); BUN (Urea Nitrogen) 10 mg/dL (9.8-20.1); Calc. Creatinine Clearance 69 mL/min (70-130); Calcium 7.2 mg/dL (7.8-10.44); Carbon Dioxide 16 mmol/L (23-31); Chloride 112 mmol/L (98-107); Estimated GFR 93; Glucose 115 mg/dL (83-110); Magnesium 1.8 mg/dL (1.6-2.6); Potassium 3.7 mmol/L (3.5-5.1); Sodium 136 mmol/L (136-145)
[2023-01-04] MEDS: Lisinopril 10 MG TAB PO SCH (10:16)
[2023-01-04] MEDS: Sodium Bicarbonate Tab 325 MG TAB PO SCH ×2 (10:16→20:25)
[2023-01-04] MEDS: Acetaminophen 500 MG TAB PO SCH ×4 (10:17→20:29)
[2023-01-04] MEDS: Multivit, Therapeutic 1 TAB PO SCH (10:18)
[2023-01-04] MEDS: Ferrous Gluconate 324 MG TAB PO SCH (10:18)
[2023-01-04] MEDS: Aspirin 81 mg Enteric Coated Tablet PO SCH (10:18)
[2023-01-04] MEDS: Citalopram 10 MG TAB PO SCH (10:18)
[2023-01-04] MEDS: Potassium Chloride 20 MEQ TAB PO SCH (10:18)
[2023-01-04] MEDS: QUEtiapine 25 MG TAB PO SCH (20:25)
[2023-01-05 05:42] LABS: #Basophils 0.1 thou/uL (0.0-0.2); #Eosinphils 0.3 thou/uL (0.0-0.7); #Monocytes 0.8 thou/uL (0.11-0.59); #Neutrophils 2.9 thou/uL (1.40-6.50); %Basophils 0.9 % (0.0-1.0); %Eosinophils 4.5 % (0.0-10.0); %Lymphocytes 44.8 % (21.0-51.0); %Monocytes 10.7 % (0.0-10.0); %Neutrophils 38.3 % (42.0-75.0); Mean Corpuscular HGB CONC 34.4 g/dL (32.0-36.0); Mean Corpuscular Hemoglobin 27.3 pg (27.0-31.0); Mean Corpuscular Volume 79.4 fl (78.0-98.0); Mean Platelet Volume 8.9 fL (7.4-10.4); Platelet Count 419 10x3/uL (130-400); RBC Distribution Width 20.9 % (11.5-14.5); White Blood Cell (WBC) Count 7.6 10x3/uL (4.8-10.8)
[2023-01-05 06:13] LABS: Anion Gap 10 mmol/L (10-20); BUN (Urea Nitrogen) 8 mg/dL (9.8-20.1); Calc. Creatinine Clearance 68 mL/min (70-130); Calcium 7.7 mg/dL (7.8-10.44); Carbon Dioxide 21 mmol/L (23-31); Chloride 111 mmol/L (98-107); Estimated GFR 93; Glucose 98 mg/dL (83-110); Sodium 138 mmol/L (136-145)
[2023-01-05] MEDS: Meropenem 1 GM in Sodium Chloride 0.9% 100 ML IVPB SCH (10:17)
[2023-01-05] MEDS: Sodium Bicarbonate Tab 325 MG TAB PO SCH (10:17)
[2023-01-05] MEDS: Lisinopril 10 MG TAB PO SCH (10:18)
[2023-01-05] MEDS: Ferrous Gluconate 324 MG TAB PO SCH (10:18)
[2023-01-05] MEDS: Potassium Chloride 20 MEQ TAB PO SCH (10:18)
[2023-01-05] MEDS: Citalopram 10 MG TAB PO SCH (10:18)
[2023-01-05] MEDS: Acetaminophen 500 MG TAB PO SCH ×2 (10:18→12:29)
[2023-01-05] MEDS: Multivit, Therapeutic 1 TAB PO SCH (10:19)
[2023-01-05] MEDS: Aspirin 81 mg Enteric Coated Tablet PO SCH (10:19)
[2023-01-05 15:29] VITALS: BP 135/78; TEMP 98.5
== END 2023-01-05 16:40 | DRG 329 ==
LOC: ERS 18:15 → SURG B 22:09 → IMCU/EMU 12-30 15:40 → SURG A 01-01 13:37
PROVIDERS: ADMIT Student in an Organized Health Care Education/Training Program; ATTEND Emergency Medicine
PROC: 0DBN0ZZ Excision of Sigmoid Colon, Open Approach (ICD-10-PCS; principal; 2022-12-30)
PROC: 0D1N0Z4 Bypass Sigmoid Colon to Cutaneous, Open Approach (ICD-10-PCS; 2022-12-30)
PROC: 3E0M05Z Introduction of Adhesion Barrier into Peritoneal Cavity, Open Approach (ICD-10-PCS; 2022-12-30)
PROC: 02HV33Z Insertion of Infusion Device into Superior Vena Cava, Percutaneous Approach (ICD-10-PCS; 2022-12-30)
DX: D37.5 Neoplasm of uncertain behavior of rectum (principal); K56.2 Volvulus; E87.20 Acidosis, unspecified; N17.9 Acute kidney failure, unspecified; N39.0 Urinary tract infection, site not specified; T83.510A Infection and inflammatory reaction due to cystostomy catheter, initial encounter; Q43.8 Other specified congenital malformations of intestine; E83.39 Other disorders of phosphorus metabolism; K59.00 Constipation, unspecified; E11.9 Type 2 diabetes mellitus without complications; I10 Essential (primary) hypertension; E87.6 Hypokalemia; R53.81 Other malaise; F03.90 Unspecified dementia, unspecified severity, without behavioral disturbance, psychotic disturbance, mood disturbance, and anxiety; Z98.890 Other specified postprocedural states; Z79.899 Other long term (current) drug therapy; Z79.82 Long term (current) use of aspirin; Z98.51 Tubal ligation status; Z90.49 Acquired absence of other specified parts of digestive tract
CPT/HCPCS: 36415; 36416; 71045; 74022; 74177; 80048; 80053; 81001; 82378; 83036; 83605; 83735; 84100; 85025; 87077; 87086; 87186; 88307; 96365; 96375; 97139; C1776; J1650; J1815; J2185; J2370; J2405; J2543; J2704; J3010; J3475; J3480; J3490; J7042; J7050; J7120; Q9967